=== PATIENT | male | born 1965 | race Caucasian/White ===

== ENCOUNTER 2016-06-29 12:03 | Emergency (ER) | payer BC ==
[~2016-06-29] VITALS: Ht 175.3 cm; Wt 103.2 kg
[~2016-06-29 12:03] MED LIST: AMOXICILLIN875 MG PO; ASPIR-LOW81 MG PO; ASPIRIN325 MG PO; Antivert PO; BACTRIM,SEPT1 TABLET PO; CYANOCOBALAM1000 MCG PO; DAILY VALUE1 EACH PO; ECOTRIN325 MG PO; Ecotrin PO; FENOFIBRATE160 M1 PO; FLOMAX0.4 MG PO; FLOVENT DISKUS50 MCG IH; Folvite PO; HYDROCODON-ACE1 EAC7 PO; Habitrol,Nicoderm CQ TD; KEFLEX500 MG PO; LIPITOR20 MG PO; LOFIBRA,TRIGLI160 MG PO; Lipitor PO; MECLIZINE HCL25 MG PO; NAPROSYN500 MG PO; NAPROXEN500 MG PO; PERCOCET 5/31 TABLET PO; PRAVASTATIN SOD10 MG PO; TENORMIN50 MG PO; THERAGRAN1 TABLET PO; Thiamine,Vitamin B1 PO; ZESTRIL,PRINIVI10 MG PO; ZESTRIL,PRINIVI20 MG PO
[2016-06-29 12:44] LABS: EOSINOPHIL (%) 0.8 % (0-5); EOSINOPHIL COUNT 0.1 K/uL (0-0.3); HEMATOCRIT 46.2 % (38.0-50.0); IMMATURE GRANULOCYTE (%) 0.2 % (0.0-0.7); IMMATURE GRANULOCYTE COUNT 0.2 K/uL; LYMPHOCYTE COUNT 1.9 K/uL (1.0-2.8); MCH 34.5 PG (29.0-34.0); MCHC 35.9 G/DL (30.0-36.0); MEAN PLAT.VOLUME 9.7 uM^3 (9.0-12.4); MONOCYTE COUNT 0.8 K/uL (0-0.8); NEUTROPHIL (%) 74.6 % (45-76); NEUTROPHIL COUNT 8.1 K/uL (1.8-6.4); PLATELET COUNT 242 K/uL (156-360); RBC DIS.WIDTH-CV 11.2 % (11.8-14.6); RBC DIS.WIDTH-SD 38.6 % (39-53); RED BLOOD COUNT 4.81 M/uL (4.00-5.50); WHITE BLOOD COUNT 10.9 K/uL (4.1-10.2)
[2016-06-29 12:53] LABS: CHLORIDE 104 mEq/L (99-109); POTASSIUM 3.9 mEq/L (3.7-5.4); SODIUM 136 mEq/L (136-147)
[2016-06-29 12:56] LABS: GLUCOSE 109 mg/dL (70-99)
[2016-06-29 12:57] LABS: ANION GAP 12 MEQ/L (2-14)
[2016-06-29 12:58] LABS: TOTAL BILIRUBIN 0.8 mg/dL (0.0-1.0)
[2016-06-29 12:59] LABS: ALKALINE PHOSPHATASE 63 IU/L (3-129); GFR ESTIMATE (CALCULATED) > 59 mL/min/
[2016-06-29 13:00] LABS: UREA NITROGEN (BUN) 8 mg/dL (9-23)
[2016-06-29 13:03] LABS: LIPASE 20 U/L (1.0-51.0)
[2016-06-29 14:32] LABS: ADD MIUA? YES; BILIRUBIN NEGATIVE; BLOOD NEGATIVE; COLOR YELLOW ((YELLOW)); GLUCOSE (STRIP) NEGATIVE; KETONES NEGATIVE; LEUKOCYTES NEGATIVE; NITRITE NEGATIVE; PROTEIN (STRIP) NEGATIVE; SPECIFIC GRAVITY 1.015 (1.000-1.030); UROBILINOGEN 0.2 MG/DL (0.2-1.0)
[2016-06-29 14:37] LABS: BACTERIA NONE SEEN /HPF; CALCIUM OXALATE CRYSTALS 2+ /HPF; EPITHELIAL CELLS RARE /HPF; MUCUS TRACE /LPF; RED BLOOD CELLS 0-5 /HPF (0-5); UCUL ADDED? NO; WHITE BLOOD CELLS 0-5 /HPF (0-5)
[2016-06-29] MEDS ORDERED: PERCOCET 5/31 TABLET PO (15:21)
[2016-06-29] MEDS ORDERED: ZOFRAN ODT4 MG PO (15:21)
[2016-06-29 15:45] VITALS: BP 159/96
== END 2016-06-29 15:40 | disposition home or self-care (01) ==
LOC: EME 12:03
PROVIDERS: Emergency Medicine
DX: R10.11 Right upper quadrant pain (principal); R11.0 Nausea; R19.7 Diarrhea, unspecified; I10 Essential (primary) hypertension; E78.5 Hyperlipidemia, unspecified; Z79.82 Long term (current) use of aspirin; F10.20 Alcohol dependence, uncomplicated; F17.200 Nicotine dependence, unspecified, uncomplicated
CPT/HCPCS: 74176; 80053; 81003; 83690; 85025; 93005; 99281; 99284

== ENCOUNTER 2016-09-19 16:50 | Emergency (ER) | payer SELFPAY ==
[~2016-09-19] VITALS: Ht 175.3 cm; Wt 91.6 kg
[~2016-09-19 16:50] MED LIST changes: +ZOFRAN ODT4 MG PO
[2016-09-19 17:37] LABS: HEMATOCRIT 43.3 % (38.0-50.0); MCH 35.7 PG (29.0-34.0); MCHC 36.5 G/DL (30.0-36.0); MEAN PLAT.VOLUME 9.5 uM^3 (9.0-12.4); PLATELET COUNT 156 K/uL (156-360); RBC DIS.WIDTH-CV 10.9 % (11.8-14.6); RED BLOOD COUNT 4.42 M/uL (4.00-5.50); WHITE BLOOD COUNT 7.7 K/uL (4.1-10.2)
[2016-09-19 17:40] LABS: ADD MIUA? YES; BILIRUBIN NEGATIVE; BLOOD NEGATIVE; COLOR YELLOW ((YELLOW)); GLUCOSE (STRIP) NEGATIVE; KETONES NEGATIVE; LEUKOCYTES NEGATIVE; NITRITE NEGATIVE; PROTEIN (STRIP) NEGATIVE; SPECIFIC GRAVITY 1.004 (1.000-1.030); UROBILINOGEN 0.2 MG/DL (0.2-1.0)
[2016-09-19 17:46] LABS: CHLORIDE 98 mEq/L (99-109); POTASSIUM 3.5 mEq/L (3.7-5.4); SODIUM 131 mEq/L (136-147)
[2016-09-19 17:48] LABS: GLUCOSE 113 mg/dL (70-99)
[2016-09-19 17:49] LABS: AMPHETAMINE NEGATIVE (500 ng/mL); BACTERIA RARE /HPF; BARBITURATES NEGATIVE (200 ng/mL); BENZODIAZEPINES NEGATIVE (150 ng/mL); COCAINE NEGATIVE (150 ng/mL); EPITHELIAL CELLS NONE SEEN /HPF; INTERNAL CONTROLS VALID? YES; METHADONE NEGATIVE (200 ng/mL); METHAMPHETAMINE NEGATIVE (500 ng/mL); MUCUS NONE SEEN /LPF; OPIATES (MORPHINE) NEGATIVE (100 ng/mL); OXYCODONE NEGATIVE (100 ng/mL); PHENCYCLIDINE NEGATIVE (25 ng/mL); PROPOXYPHENE NEGATIVE (300 ng/mL); RED BLOOD CELLS 0-5 /HPF (0-5); THC CANNABINOIDS NEGATIVE (50 ng/mL); TRICYCLIC ANTIDEPRESSANTS NEGATIVE (300 ng/mL); UCUL ADDED? NO; WHITE BLOOD CELLS NONE SEEN /HPF (0-5)
[2016-09-19 17:50] LABS: ANION GAP 17 MEQ/L (2-14); TOTAL BILIRUBIN 1.3 mg/dL (0.0-1.0)
[2016-09-19 17:51] LABS: SERUM ETHYL ALCOHOL 275 mg/dL
[2016-09-19 17:52] LABS: GFR ESTIMATE (CALCULATED) > 59 mL/min/
[2016-09-19 17:53] LABS: ALKALINE PHOSPHATASE 68 IU/L (3-129)
[2016-09-19 17:54] LABS: UREA NITROGEN (BUN) 4 mg/dL (9-23)
[2016-09-19 17:55] LABS: SALICYLATE < 5.0 MG/DL (15-30)
[2016-09-19 19:19] LABS: POINT-OF-CARE METER ID UU13113702
[2016-09-20] MEDS ORDERED: LISINOPRIL20 MG PO (09:11)
[2016-09-20] MEDS ORDERED: ASPIR-LOW81 MG PO (09:12)
[2016-09-20] MEDS ORDERED: LIBRIUM25 MG PO (13:37)
[2016-09-20] MEDS ORDERED: THIAMINE HCL100 MG PO (13:37)
[2016-09-20 14:16] VITALS: BP 156/84
== END 2016-09-20 14:17 | disposition home or self-care (01) ==
LOC: EME 16:50
PROVIDERS: Physician Assistant
DX: R45.851 Suicidal ideations (principal); F32.9 Major depressive disorder, single episode, unspecified; F10.24 Alcohol dependence with alcohol-induced mood disorder; Y90.8 Blood alcohol level of 240 mg/100 ml or more; R94.5 Abnormal results of liver function studies; F17.200 Nicotine dependence, unspecified, uncomplicated; R74.0 Nonspecific elevation of levels of transaminase and lactic acid dehydrogenase [LDH]
CPT/HCPCS: 80053; 81003; 82948; 85027; 90837; 99281; 99285; G0480; J2060; J2405; J3411; J3475; J7030